=== PATIENT | male | born 1980 | race Caucasian/White ===

== ENCOUNTER 2016-11-14 19:37 | Emergency (ER) | payer OTHER ==
[2016-11-14 20:56] LABS: HEMOGLOBIN 12.8 gm/dl (14.0-17.5); RED BLOOD COUNT 4.48 M/UL (4.20-5.50); WHITE BLOOD COUNT 4.3 K/UL (4.5-11.0)
[2016-11-14 21:14] LABS: BUN/CREATININE RATIO 11 (0-10)
== END 2016-11-14 22:00 | disposition home or self-care (01) ==
LOC: ER1 19:37
PROVIDERS: Specialist/Technologist Athletic Trainer
DX: R10.32 Left lower quadrant pain (principal); I10 Essential (primary) hypertension; Q63.1 Lobulated, fused and horseshoe kidney; F17.210 Nicotine dependence, cigarettes, uncomplicated
CPT/HCPCS: 36415; 80053; 81001; 85025; 96374; 99284; J1885

== ENCOUNTER 2022-04-07 13:34 | Emergency (ER) | payer OTHER ==
[~2022-04-07 13:34] MED LIST: AUGMENTIN 875-1 EACH PO; PHENERGAN6.25 MG/5 PO; SINGULAIR10 MG PO; XYZAL5 MG PO
[2022-04-07 14:13] LABS: HEMOGLOBIN 14.3 gm/dl (14.0-17.5); RED BLOOD COUNT 5.04 M/UL (4.20-5.50)
[2022-04-07 14:31] LABS: BUN/CREATININE RATIO 12 (0-10)
[2022-04-07] MEDS ORDERED: METRONIDAZOLE500 MG PO (17:41)
[2022-04-07] MEDS ORDERED: ZOFRAN 4 MG TAB4 MG PO (17:41)
[2022-04-07] MEDS ORDERED: CIPRO500 MG PO (17:41)
== END 2022-04-07 18:58 | disposition home or self-care (01) ==
LOC: ER1 13:34
PROVIDERS: Emergency Medicine
DX: K52.9 Noninfective gastroenteritis and colitis, unspecified (principal); F17.210 Nicotine dependence, cigarettes, uncomplicated; Z20.822 Contact with and (suspected) exposure to COVID-19
CPT/HCPCS: 0240U; 71046; 80053; 81001; 82550; 82553; 83690; 84484; 85025; 93005; 96374; 99284; J1885; Q9967